=== PATIENT | male | born 1975 | race Caucasian/White ===

== ENCOUNTER 2017-07-25 03:15 | Inpatient (IN) ==
[2017-07-25 04:05] LABS: Basophils % 0.4 %; Eosinophils # 0.3 K/mcL (0.0-0.6); Eosinophils % 3.4 %; Hematocrit 43.7 % (37.5-50.1); Hemoglobin 14.3 g/dL (12.9-16.9); Immature Granulocytes % 0.3 % (0-4); Lymphocytes # 2.1 K/mcL (0.6-4.6); Lymphocytes % 25.9 %; Mean Corpuscular HGB Conc 32.7 g/dL (31.6-35.5); Mean Corpuscular Hemoglobin 24.8 pg (28.0-33.3); Mean Corpuscular Volume 75.7 fL (83.0-100.0); Mean Platelet Volume 9.9 fL (9.4-12.4); Monocytes # 0.6 K/mcL (0.0-1.3); Monocytes % 7.5 %; Platelet Count 316 K/mcL (140-400); Red Blood Count 5.77 M/mcL (4.19-5.50); Segmented Neutrophils % 62.5 %
[2017-07-25 04:11] LABS: Bilirubin,Urine Negative (Negative); Blood,Urine Negative (Negative); Clarity,Urine Clear (Clear); Color,Urine Yellow (Yellow); Glucose,Urine (UA) Normal (Normal); Ketones,Urine Negative (Negative); Leukocyte Esterase,Urine Negative (Negative); Nitrite,Urine Negative (Negative); PH,Urine 7.5 pH Units (5.0-8.0); Protein,Urine 30 mg/dL (Neg-Trace); Specific Gravity,Urine 1.025 (1.010-1.025); Urobilinogen,Urine Normal (Normal)
[2017-07-25 04:13] LABS: Bacteria,Urine None Seen per hpf (None-Few); Hyaline Casts,Urine None Seen per lpf (None-Few); Squamous Epithelial Cell,Urine Moderate per lpf (None-Few); WBC,Urine 0-3 per hpf (0-3)
[2017-07-25 04:17] LABS: Amphetamine Screen,Urine Negative ng/mL (Cutoff=1000); Barbiturate Screen,Urine Negative ng/mL (Cutoff=200); Benzodiazepines Screen,Urine Positive ng/mL (Cutoff=200); Cannabinoid Screen,Urine Negative ng/mL (Cutoff = 50); Cocaine Screen,Urine Negative ng/mL (Cutoff= 300); Opiate Screen,Urine Positive ng/mL (Cutoff=300); Phencyclidine Screen,Urine Negative ng/mL (Cutoff=25)
[2017-07-25 04:24] LABS: Acetaminophen < 1.0 mcg/mL (10-30); Ethanol < 10 mg/dL (0-10); Salicylate < 5.0 mg/dL (15.0-30.0)
[2017-07-25 04:28] LABS: BUN/Creatinine Ratio 18 (6-26); Blood Urea Nitrogen 17 mg/dL (6-20); Calcium 9.6 mg/dL (8.6-10.3); Carbon Dioxide 32 mEq/L (23-29); Chloride 98 mEq/L (98-107); Glucose 107 mg/dL (70-105); Osmolality,Calculated 290 (280-300); Potassium 3.3 mEq/L (3.5-5.1); Sodium 139 mEq/L (136-145); eGFR For African Americans > 60 (> 60); eGFR For Non-African Americans > 60 (> 60)
--- NOTE | 2017-07-25 06:17 | Emergency Department Note ---
Disposition Clinical Impression: Suicidal ideation Disposition: Admitted As Inpatient Condition: Good Referrals: NONE,PCP [Primary Care Provider] - General Adult HPI - General Chief complaint: ED Psychiatric Symptoms Stated complaint: SI Time Seen by Provider: 07/25/17 06:11 Source: patient Mode of arrival: ambulatory Limitations: no limitations Nursing Notes Reviewed: Yes Vital Signs Reviewed: Yes - History of Present Illness HPI Narrative: 41-year-old male with a history of suicidal ideation, suicidal attempts presents to the emergency department for feeling suicidal after a nasty breakup with his girlfriend. He states that he need at this time if he tried he would actually succeed in a scared him so he came in here for evaluation. Patient has a known history of depression and anxiety as well as polysubstance abuse. Onset (ago): Just TABULAR TYPIST Pain Scale: 0 - Related Data Previous Rx's Medication Instructions Recorded Ibuprofen [Motrin] 600 mg PO Q8HR PRN #20 tab 01/24/16 Oxycodone HCl/Acetaminophen 1 each PO Q4-6H PRN #15 tablet 01/24/16 [Percocet 5-325 mg Tablet] HYDROcodone/Acet 5/325 mg [[place] 1 tab PO Q6H PRN #15 tab 06/28/16 5-325 mg] Naproxen [Naprosyn] 500 mg PO BID #20 tablet 06/28/16 Cyclobenzaprine [Flexeril] 10 mg PO TID PRN #15 tablet 12/07/16 Naproxen [Naprosyn] 500 mg PO BID PRN #20 tablet 12/07/16 Allergies Allergy/AdvReac Type Severity Reaction Status Date / Time No Known Allergies Allergy Verified 07/25/17 03:17 Review of Systems: Denies all physical complaints, complains of suicidal ideation, suicidal plan, depression and anxiety. All systems ED: reviewed and negative except as stated. Review of Systems: As Per HPI Past Medical History - Past Medical History Attestation: Yes The following information was validated with the patient. Source: patient Medical history: Reports: asthma, hypertension Psychiatric history: Reports: anxiety, depression - Social History Smoking Status: Current every day smoker Smokeless Tobacco Status: No Alcohol use: Reports: none, occasionally, recent Drug use: Reports: none Physical Exam Physical exam negative. Patient does appear depressed. He has open and talking about being depressed and suicidal thoughts. - General Limitations: no limitations General appearance: alert Course Course Narrative: Patient here for medical clearance for his suicidal ideation. He does appear depressed. Physical exam negative. Labs negative with the exception of polysubstance abuse. Ia called is therefore 42. They are willing to accept the patient. We will transfer her care to [facility] at this time. Vital Signs Temperature 98.6 F 07/25/17 03:17 Pulse Rate 113 07/25/17 03:17 Respiratory Rate 16 07/25/17 03:17 Blood Pressure 133/92 07/25/17 03:17 O2 Sat by Pulse Oximetry 97 07/25/17 03:17 Temperature 98.6 F 07/25/17 03:17 Pulse Rate 82 07/25/17 05:09 Respiratory Rate 12 07/25/17 05:09 Blood Pressure 107/67 07/25/17 05:09 O2 Sat by Pulse Oximetry 94 07/25/17 05:09 Oxygen Delivery Oxygen Delivery Room Air Medical Decision Making - Lab Data Result diagrams: 07/25/17 03:40 07/25/17 03:40 Lab Results 07/25/17 07/25/17 07/25/17 Range/Units 03:40 03:40 03:50 WBC 8.0 (4.3-11.1) K/mcL RBC 5.77 H (4.19-5.50) M/mcL Hgb 14.3 (12.9-16.9) g/dL Hct 43.7 (37.5-50.1) % MCV 75.7 L (83.0-100.0) fL MCH 24.8 L (28.0-33.3) pg MCHC 32.7 (31.6-35.5) g/dL RDW 14.0 (11.5-14.5) % Plt Count 316 (140-400) K/mcL MPV 9.9 (9.4-12.4) fL Immature Gran % 0.3 (0-4) % Seg Neutrophils % 62.5 % Lymphocytes % 25.9 % Monocytes % 7.5 % Eosinophils % 3.4 % Basophils % 0.4 % Neutrophils # 5.0 (1.6-8.9) K/mcL Lymphocytes # 2.1 (0.6-4.6) K/mcL Monocytes # 0.6 (0.0-1.3) K/mcL Eosinophils # 0.3 (0.0-0.6) K/mcL Basophils # 0.0 (0.0-0.2) K/mcL Sodium 139 (136-145) mEq/L Potassium 3.3 L (3.5-5.1) mEq/L Chloride 98 (98-107) mEq/L Carbon Dioxide 32 H (23-29) mEq/L BUN 17 (6-20) mg/dL Creatinine 0.93 (0.70-1.30) mg/dL Est GFR ( Amer) > 60 (> 60) Est GFR (Non-Af Amer) > 60 (> 60) BUN/Creatinine Ratio 18 (6-26) Glucose 107 H (70-105) mg/dL Calculated Osmolality 290 (280-300) Calcium 9.6 (8.6-10.3) mg/dL Urine Color Yellow (Yellow) Urine Clarity Clear (Clear) Urine pH 7.5 (5.0-8.0) pH Units Ur Specific [place] 1.025 (1.010-1.025) Urine Protein 30 H (Neg-Trace) mg/dL Urine Glucose (UA) Normal (Normal) mg/dL Urine Ketones Negative (Negative) mg/dL Urine Blood Negative (Negative) Urine Nitrite Negative (Negative) Urine Bilirubin Negative (Negative) Urine Urobilinogen Normal (Normal) mg/dL Ur Leukocyte Esterase Negative (Negative) Urine Microscopic RBC 3-5 H (0-3) per hpf Urine Microscopic WBC 0-3 (0-3) per hpf Ur Squamous Epith Cells Moderate H (None-Few) per lpf Urine Bacteria None Seen (None-Few) per hpf Hyaline Casts None Seen (None-Few) per lpf Salicylates < 5.0 L (15.0-30.0) mg/dL Urine Opiates Screen (Yexqay=685) ng/mL Acetaminophen < 1.0 L (10-30) mcg/mL Ur Barbiturates Screen (Oklcbr=661) ng/mL Ur Phencyclidine Scrn (Cutoff=25) ng/mL Ur Amphetamines Screen (Bmwrup=1694) ng/mL U Benzodiazepines Scrn (Lfyoad=442) ng/mL Urine Cocaine Screen (Cutoff= 300) ng/mL U Marijuana (THC) Screen (Cutoff = 50) ng/mL Ethyl Alcohol < 10 (0-10) mg/dL 07/25/17 Range/Units 03:50 WBC (4.3-11.1) K/mcL RBC (4.19-5.50) M/mcL Hgb (12.9-16.9) g/dL Hct (37.5-50.1) % MCV (83.0-100.0) fL MCH (28.0-33.3) pg MCHC (31.6-35.5) g/dL RDW (11.5-14.5) % Plt Count (140-400) K/mcL MPV (9.4-12.4) fL Immature Gran % (0-4) % Seg Neutrophils % % Lymphocytes % % Monocytes % % Eosinophils % % Basophils % % Neutrophils # (1.6-8.9) K/mcL Lymphocytes # (0.6-4.6) K/mcL Monocytes # (0.0-1.3) K/mcL Eosinophils # (0.0-0.6) K/mcL Basophils # (0.0-0.2) K/mcL Sodium (136-145) mEq/L Potassium (3.5-5.1) mEq/L Chloride (98-107) mEq/L Carbon Dioxide (23-29) mEq/L BUN (6-20) mg/dL Creatinine (0.70-1.30) mg/dL Est GFR ( Amer) (> 60) Est GFR (Non-Af Amer) (> 60) BUN/Creatinine Ratio (6-26) Glucose (70-105) mg/dL Calculated Osmolality (280-300) Calcium (8.6-10.3) mg/dL Urine Color (Yellow) Urine Clarity (Clear) Urine pH (5.0-8.0) pH Units Ur Specific [place] (1.010-1.025) Urine Protein (Neg-Trace) mg/dL Urine Glucose (UA) (Normal) mg/dL Urine Ketones (Negative) mg/dL Urine Blood (Negative) Urine Nitrite (Negative) Urine Bilirubin (Negative) Urine Urobilinogen (Normal) mg/dL Ur Leukocyte Esterase (Negative) Urine Microscopic RBC (0-3) per hpf Urine Microscopic WBC (0-3) per hpf Ur Squamous Epith Cells (None-Few) per lpf Urine Bacteria (None-Few) per hpf Hyaline Casts (None-Few) per lpf Salicylates (15.0-30.0) mg/dL Urine Opiates Screen Positive H (Extomd=872) ng/mL Acetaminophen (10-30) mcg/mL Ur Barbiturates Screen Negative (Lbpjkl=376) ng/mL Ur Phencyclidine Scrn Negative (Cutoff=25) ng/mL Ur Amphetamines Screen Negative (Ahcbrr=0899) ng/mL U Benzodiazepines Scrn Positive H (Fbjqbj=521) ng/mL Urine Cocaine Screen Negative (Cutoff= 300) ng/mL U Marijuana (THC) Screen Negative (Cutoff = 50) ng/mL Ethyl Alcohol (0-10) mg/dL
[2017-07-25] MEDS ORDERED: *HR* LORazepam 1 MG TABLET PO PRN (06:39)
[2017-07-25] MEDS ORDERED: *HR* LORazepam 2 MG/ML VIAL IM PRN (06:39)
[2017-07-25] MEDS ORDERED: MOM Conc 10 ML UD.LIQ PO PRN (06:39)
[2017-07-25] MEDS ORDERED: Haloperidol Lactate 5 MG/ML VIAL IM PRN (06:39)
[2017-07-25] MEDS ORDERED: Mag Hydrox/Al Hydrox/Simeth 30 ML UDC PO PRN (06:39)
--- NOTE | 2017-07-25 08:20 | Emergency Department Note ---
Attestation Statement - Attestation Attestation: I, Wade Hein MD, personally evaluated this patient and discussed their management with the midlevel provicer, PAC/C UNIX DEVELOPER. I reviewed the midlevel provider 's note and agree with the documented findings, medical decision making, and plan of care. 41-year-old male presents to the emergency department with a complaint of suicidal ideation. Patient has a history of depression in the past and some suicidal thoughts. He states he has tried taking overdoses in the past. He states that this time he wanted to make sure that if he tried to kill himself that it was effective and he would do more than take a bunch of pills. He mentioned that he might shoot himself or cut his wrist. On examination patient is a well-developed well-nourished well-appearing male in no acute distress. He is alert and oriented 3. There is no cyanosis or diaphoresis. Breath sounds are clear and equal bilaterally. Heart regular rate and rhythm. Abdomen soft and nontender with normal bowel sounds. No gross focal neurological deficits. Labs reviewed and patient medically cleared for psychiatric evaluation. [address] psychiatry service was consulted and evaluated patient in the emergency department and the patient is being admitted to the [address] psychiatric unit.
--- NOTE | 2017-07-25 12:12 | Psychiatry History & Physical ---
Date of Encounter: 07/25/17 Time of Encounter: 12:07 History of Present Illness Patient Stated Chief Complaint: Suicidal ideation Medicare Admission Attestation: For traditional Medicare patients the provided hospital inpatient services are reasonable and necessary and in the case of services not specified as inpatient -only under 42 CFR 419.22 (n), that they are appropriately provided as inpatient services in accordance 42 CFR 412.3. For Critical [facility] the patient may reasonably be expected to be discharged or transferred to a hospital within 96 hours after admission to the Critical Access Hospital. Admitted From: Emergency Dept History of Present Illness: Mr. العراقي is a 41 year old male admitted from the emergency department for evaluation of suicidal ideation. Patient stated that he had marital conflicts with his who left the house and went to her parents and would not answer his phone calls or texts, he felt hopeless and helpless and he had thoughts about shooting himself to kill himself then on advice of a friend he came to the hospital for evaluation. Patient had no previous psych history or treatment and he reported that he was given Depakote couple years ago by his primary care physician to treat his anxiety otherwise no mental health history of treatment. Patient denied any previous suicide attempts or psychiatric hospitalization. 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 He is and they have together 3 children. Patient has a history of using opiates in the past but denied any use of alcohol or any drugs. Denies any history of rehabilitation. He is frustrated by the situation does not elaborate on the conflict with the and feeling hopeless. Past Med Surg Social Fam HX - Past Medical History Medical history: hypertension - Past Psychiatric History Psychiatric history: Reports: no psych history - Social History Smoking Status: Current every day smoker Smokeless Tobacco Status: No Alcohol use: none, occasionally, recent Drug use: none - Family History Mother History Unknown: Yes Adopted: [place]: Amelia العراقي Age: 63 Family Member Ethnicity: Non- Living Status: Still Living Hx Family Cardiac Disorders: Yes (hypertenion) Hx Family Respiratory Disorders: Yes (copd) Hx Family Cancer: No Hx Family GI Disorders: No Hx Family Genitourinary Disorders: No Hx Family Endocrine Disorder: No Hx Family Musculoskeletal Disorders: No Hx Family Neuromuscular Disorders: No Hx Family Neurologic Disorders: No Hx Family HEENT Disorders: No Hx Family Autoimmune Disorders: No Hx Family Reproductive Disorders: No Hx Family Psychosocial Disorders: Yes (depression) Hx Family Medical Disorders: No Medications & Allergies Ibuprofen [Motrin] 600 mg PO Q8HR PRN #20 tab 01/24/16 [Rx] Oxycodone HCl/Acetaminophen [Percocet 5-325 mg Tablet] 1 each PO Q4-6H PRN #15 tablet 01/24/16 [Rx] HYDROcodone/Acet 5/325 mg [[place] 5-325 mg] 1 tab PO Q6H PRN #15 tab 06/28/16 [Rx ] Naproxen [Naprosyn] 500 mg PO BID #20 tablet 06/28/16 [Rx] Cyclobenzaprine [Flexeril] 10 mg PO TID PRN #15 tablet 12/07/16 [Rx] Naproxen [Naprosyn] 500 mg PO BID PRN #20 tablet 12/07/16 [Rx] 3 Allergy/AdvReac Type Severity Reaction Status Date / Time No Known Allergies Allergy Verified 07/25/17 03:17 Review of Systems Psychiatric: Reports: abnormal sleep pattern, suicidal ideation, hopelessness Exam - HEENT Head exam IM: Present: atraumatic Eye exam IM: Present: EOMI, normal appearance, PERRL ENT exam IM: Present: normal exam - Neurological Neurological exam: Present: CN II-XII intact - Respiratory Respiratory exam IM: Present: CTAB - GI/Abdominal GI/Abdominal exam IM: Present: normal bowel sounds, soft. Absent: tenderness - Extremities Extremities exam IM: Present: full ROM - Skin Skin exam IM: Present: dry, warm - Constitutional Vitals: Temp Pulse Resp BP Pulse Ox 97.6 F 83 12 118/86 94 07/25/17 06:44 07/25/17 06:44 07/25/17 06:44 07/25/17 06:44 07/25/17 05:09 General appearance: age & developmentally appropriate, well-groomed, well- nourished - Musculoskeletal Gait: normal Station: relaxed Strength & Tone: normal for patient - Psychiatric Patient Orientation: Yes Person, Yes Time, Yes Place Level of alertness: Alert Behavior: calm, cooperative, anxious, guarded Psychomotor activity: Normal Eye Contact: Maintains Eye Contact Mood Description: Angry, Depressed, Irritable Affect description: congruent with mood, constricted Speech Volume: Normal Speech pattern: normal rate, normal rhythm, normal tone, fluent, spontaneous Language & Vocabulary: consistent with education Thought Process: Linear, Goal Oriented Thought Content: Yes Suicidal ideation, No Homicidal ideation, No Overt delusions Perceptual Disturbances: No Auditory hallucinations, No Visual hallucinations Attention Span Ability: Capable of Focused Attention Memory Description: Grossly Intact Patient Reliability: Reliable Historian Fund of knowledge: Yes abstraction ability, Yes average, Yes aware of current events Intelligence Estimate: Average Judgment: Limited Insight: Partial Results - Labs Labs: Laboratory Last Values WBC 8.0 K/mcL (4.3-11.1) 07/25/17 03:40 RBC 5.77 M/mcL (4.19-5.50) H 07/25/17 03:40 Hgb 14.3 g/dL (12.9-16.9) 07/25/17 03:40 Hct 43.7 % (37.5-50.1) 07/25/17 03:40 MCV 75.7 fL (83.0-100.0) L 07/25/17 03:40 MCH 24.8 pg (28.0-33.3) L 07/25/17 03:40 MCHC 32.7 g/dL (31.6-35.5) 07/25/17 03:40 RDW 14.0 % (11.5-14.5) 07/25/17 03:40 Plt Count 316 K/mcL (140-400) 07/25/17 03:40 MPV 9.9 fL (9.4-12.4) 07/25/17 03:40 Immature Gran % 0.3 % (0-4) 07/25/17 03:40 Seg Neutrophils % 62.5 % 07/25/17 03:40 Lymphocytes % 25.9 % 07/25/17 03:40 Monocytes % 7.5 % 07/25/17 03:40 Eosinophils % 3.4 % 07/25/17 03:40 Basophils % 0.4 % 07/25/17 03:40 Neutrophils # 5.0 K/mcL (1.6-8.9) 07/25/17 03:40 Lymphocytes # 2.1 K/mcL (0.6-4.6) 07/25/17 03:40 Monocytes # 0.6 K/mcL (0.0-1.3) 07/25/17 03:40 Eosinophils # 0.3 K/mcL (0.0-0.6) 07/25/17 03:40 Basophils # 0.0 K/mcL (0.0-0.2) 07/25/17 03:40 Sodium 139 mEq/L (136-145) 07/25/17 03:40 Potassium 3.3 mEq/L (3.5-5.1) L 07/25/17 03:40 Chloride 98 mEq/L (98-107) 07/25/17 03:40 Carbon Dioxide 32 mEq/L (23-29) H 07/25/17 03:40 BUN 17 mg/dL (6-20) 07/25/17 03:40 Creatinine 0.93 mg/dL (0.70-1.30) 07/25/17 03:40 Est GFR ( Amer) > 60 (> 60) 07/25/17 03:40 Est GFR (Non-Af Amer) > 60 (> 60) 07/25/17 03:40 BUN/Creatinine Ratio 18 (6-26) 07/25/17 03:40 Glucose 107 mg/dL (70-105) H 07/25/17 03:40 Calculated Osmolality 290 (280-300) 07/25/17 03:40 Calcium 9.6 mg/dL (8.6-10.3) 07/25/17 03:40 Urine Color Yellow (Yellow) 07/25/17 03:50 Urine Clarity Clear (Clear) 07/25/17 03:50 Urine pH 7.5 pH Units (5.0-8.0) 07/25/17 03:50 Ur Specific [place] 1.025 (1.010-1.025) 07/25/17 03:50 Urine Protein 30 mg/dL (Neg-Trace) H 07/25/17 03:50 Urine Glucose (UA) Normal mg/dL (Normal) 07/25/17 03:50 Urine Ketones Negative mg/dL (Negative) 07/25/17 03:50 Urine Blood Negative (Negative) 07/25/17 03:50 Urine Nitrite Negative (Negative) 07/25/17 03:50 Urine Bilirubin Negative (Negative) 07/25/17 03:50 Urine Urobilinogen Normal mg/dL (Normal) 07/25/17 03:50 Ur Leukocyte Esterase Negative (Negative) 07/25/17 03:50 Urine Microscopic RBC 3-5 per hpf (0-3) H 07/25/17 03:50 Urine Microscopic WBC 0-3 per hpf (0-3) 07/25/17 03:50 Ur Squamous Epith Cells Moderate per lpf (None-Few) H 07/25/17 03:50 Urine Bacteria None Seen per hpf (None-Few) 07/25/17 03:50 Hyaline Casts None Seen per lpf (None-Few) 07/25/17 03:50 Salicylates < 5.0 mg/dL (15.0-30.0) L 07/25/17 03:40 Urine Opiates Screen Positive ng/mL (Zcszfp=255) H 07/25/17 03:50 Acetaminophen < 1.0 mcg/mL (10-30) L 07/25/17 03:40 Ur Barbiturates Screen Negative ng/mL (Bamjmd=273) 07/25/17 03:50 Ur Phencyclidine Scrn Negative ng/mL (Cutoff=25) 07/25/17 03:50 Ur Amphetamines Screen Negative ng/mL (Zipxyx=4390) 07/25/17 03:50 U Benzodiazepines Scrn Positive ng/mL (Frvuww=710) H 07/25/17 03:50 Urine Cocaine Screen Negative ng/mL (Cutoff= 300) 07/25/17 03:50 U Marijuana (THC) Screen Negative ng/mL (Cutoff = 50) 07/25/17 03:50 Ethyl Alcohol < 10 mg/dL (0-10) 07/25/17 03:40 Assessment and Plan (1) Suicidal ideation Current visit: Yes Status: Acute Plan: Admit inpatient for safety and stabilization, Close observation, Suicide Precautions per unit protocol, Encourage participation in unit milieu, Group Therapy, Monitor sleep, Monitor appetite Additional Plan: We will start patient on Depakote 250 mg twice daily, benefits and side effects were discussed and he is agreeable to start. Risks, benefits, side effects, alternatives discussed w/pt: Yes Patient agreeable to treatment: Yes (2) Unspecified mood [affective] disorder Current visit: Yes Status: Acute Plan: Admit inpatient for safety and stabilization, Close observation, Suicide Precautions per unit protocol, Encourage participation in unit milieu, Group Therapy, Monitor sleep, Monitor appetite Risks, benefits, side effects, alternatives discussed w/pt: Yes Patient agreeable to treatment: Yes Estimated Length of Stay (Days): 3
[2017-07-25] MEDS: Nicotine 21 MG PATCH.TD24 TD SCH (12:14)
[2017-07-25] MEDS: hydrOXYzine pamoate 25 MG CAPSULE PO PRN (18:17)
[2017-07-25] MEDS: Divalproex (12 HR) 250 MG TABLET PO SCH (20:36)
[2017-07-25] MEDS: traZODone 50 MG TABLET PO PRN (20:37)
[2017-07-25] MEDS: Ibuprofen 400 MG TABLET PO PRN (20:37)
[2017-07-26] MEDS: Ibuprofen 400 MG TABLET PO PRN ×2 (08:58→19:27)
[2017-07-26] MEDS: Divalproex (12 HR) 250 MG TABLET PO SCH ×2 (08:58→20:52)
[2017-07-26] MEDS: Nicotine 21 MG PATCH.TD24 TD SCH (08:58)
[2017-07-26] MEDS: hydrOXYzine pamoate 25 MG CAPSULE PO PRN ×2 (10:17→19:07)
[2017-07-26] MEDS ORDERED: Ondansetron ODT 4 MG TAB.RAPDIS SL PRN (12:40)
[2017-07-26] MEDS ORDERED: hydrOXYzine pamoate 25 MG CAPSULE PO ONE (12:51)
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
[2017-07-26] MEDS: cloNIDine HCl 0.1 MG TABLET PO SCH ×2 (15:00→20:52)
[2017-07-26] MEDS: Baclofen 10 MG TABLET PO SCH ×2 (15:00→20:52)
[2017-07-26] MEDS: traZODone 50 MG TABLET PO PRN (20:52)
[2017-07-27] MEDS: cloNIDine HCl 0.1 MG TABLET PO SCH ×2 (08:18→21:00)
[2017-07-27] MEDS: Baclofen 10 MG TABLET PO SCH ×3 (08:18→21:01)
[2017-07-27] MEDS: Divalproex (12 HR) 250 MG TABLET PO SCH ×2 (08:18→21:01)
[2017-07-27] MEDS: Nicotine 21 MG PATCH.TD24 TD SCH (08:18)
[2017-07-27] MEDS: Ibuprofen 400 MG TABLET PO PRN ×2 (10:19→21:03)
--- NOTE | 2017-07-27 12:26 | Psychiatry Progress Note ---
Date of Encounter: 07/27/17 Time of Encounter: 12:30 Subjective Interval history: The patient has reported improved withdrawal symptoms. He has been free of suicidal ideation at least on the unit. His opiate use has was last Wednesday and he reports no cravings. On the current regimen of medicines. His depression is improved but nonetheless he is distressed about some events. The patient feels that his is not coming back to him. The patient aware of [facility] counseling. He has talked to a local police commanding officer in order to get guidance. The patient instructed his parents. Patient's presented a new plan he wants to move to [facility] outside [place] he has an opportunity to work in a job in [employer] for a company. He is previously talked to them and interviewed with them and now they are impressed with his resume he has the opportunity to interview for a position on Wednesday he would like to leave Wednesday or possibly so that he could stay overnight go to the interview. He was told that he should remain on the baclofen and that clonidine may be helping him but may need to be reduced. The patient feels that if he gets on the Depakote alone that will help his depression. He is looking for a new start in life. He was warned of the possibility of a geographical cure. That is a flight into health based on the idea that he will leave some disagreeable things behind Review of Systems Gastrointestinal: Reports: diarrhea Musculoskeletal: Reports: myalgia Psychiatric: Reports: abnormal sleep pattern, suicidal ideation, confusion, hopelessness Results - Vital Signs Vital Signs: Temp Pulse Resp BP Pulse Ox 97.9 F 87 16 111/78 94 07/27/17 08:31 07/27/17 08:31 07/27/17 08:31 07/27/17 08:31 07/25/17 05:09 Assessment and Plan (1) Major depressive disorder, single episode, severe without psychotic features Current visit: Yes Status: Acute Plan: Continue hospitalization, Close observation, Suicide Precautions per unit protocol Risks, benefits, side effects, alternatives discussed w/pt: Yes Patient agreeable to treatment: Yes (2) Uncomplicated alcohol dependence Current visit: Yes Status: Acute Plan: Continue hospitalization, Close observation Risks, benefits, side effects, alternatives discussed w/pt: Yes Patient agreeable to treatment: Yes (3) Chronic narcotic dependence Current visit: Yes Status: Acute Plan: Continue hospitalization, Close observation, Monitor sleep, Monitor appetite Risks, benefits, side effects, alternatives discussed w/pt: Yes Patient agreeable to treatment: Yes (4) Sedative, hypnotic or anxiolytic abuse, uncomplicated Current visit: Yes Status: Acute Plan: Continue hospitalization, Close observation Risks, benefits, side effects, alternatives discussed w/pt: Yes Patient agreeable to treatment: Yes (5) Opioid dependence with opioid-induced mood disorder Current visit: Yes Status: Acute Plan: Continue hospitalization, Group Therapy, Monitor sleep Risks, benefits, side effects, alternatives discussed w/pt: Yes Patient agreeable to treatment : Yes (6) Opioid dependence with uncomplicated intoxication Current visit: Yes Status: Acute Plan: Continue hospitalization, Close observation Risks, benefits, side effects, alternatives discussed w/pt: Yes Patient agreeable to treatment: Yes (7) Suicidal ideation Current visit: Yes Status: Acute Plan: Continue hospitalization, Close observation, Secure weapons Risks, benefits, side effects, alternatives discussed w/pt: Yes Patient agreeable to treatment: Yes Consult Discharge Plan - Plan Referrals: [facility] [Outside] - 08/10/17 10:45 am (The above appointment is with Maximo Butcher for primary healthcare and medication management services.) [facility] [Outside] - 08/03/17 9:00 am (The above appointment is with Corrina. This appointment is to establish you as a client, and will last approximately 3 hours. After that you will be scheduled for return individual counseling appointments. ) Psychiatry Exam - Constitutional Vitals: Temp Pulse Resp BP Pulse Ox 97.9 F 87 16 111/78 94 07/27/17 08:31 07/27/17 08:31 07/27/17 08:31 07/27/17 08:31 07/25/17 05:09 General appearance: age & developmentally appropriate, well-groomed, well- nourished - Musculoskeletal Gait: normal Station: relaxed Strength & Tone: normal for patient - Psychiatric Patient Orientation: Yes Person, Yes Time, Yes Place, Yes Circumstance Level of alertness: Alert Behavior: calm, cooperative, impulsive Psychomotor activity: Normal Eye Contact: Maintains Eye Contact Mood Description: Depressed Affect description: congruent with mood, full range Speech Volume: Normal Speech pattern: normal rate, normal rhythm, normal tone, fluent, spontaneous Language & Vocabulary: consistent with education Thought Process: Linear, Goal Oriented Thought Content: Yes Suicidal ideation, No Homicidal ideation, No Overt delusions Perceptual Disturbances: No Auditory hallucinations, No Visual hallucinations Attention Span Ability: Capable of Focused Attention Memory Description: Grossly Intact Patient Reliability: Questionable Historian Fund of knowledge: Yes above average, Yes aware of current events Intelligence Estimate: Average Judgment: Limited Insight: Partial
[2017-07-27] MEDS: hydrOXYzine pamoate 25 MG CAPSULE PO PRN ×2 (12:52→21:01)
[2017-07-27] MEDS: traZODone 50 MG TABLET PO PRN (21:01)
[2017-07-28] MEDS: hydrOXYzine pamoate 25 MG CAPSULE PO PRN (04:24)
[2017-07-28] MEDS: cloNIDine HCl 0.1 MG TABLET PO SCH (08:23)
[2017-07-28] MEDS: Divalproex (12 HR) 250 MG TABLET PO SCH (08:23)
[2017-07-28] MEDS: Baclofen 10 MG TABLET PO SCH (08:23)
[2017-07-28] MEDS: Nicotine 21 MG PATCH.TD24 TD SCH (08:23)
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
[2017-07-28 09:43] VITALS: BP 130/67
== END 2017-07-28 10:10 | disposition home or self-care (01) | DRG 751 ==
LOC: EMEROO 03:15 → 1ANU 03:15 → SUATTDRO 06:39 → 1ANU 06:39
PROVIDERS: ADMIT Psychiatry & Neurology Psychiatry; ATTEND Psychiatry & Neurology Forensic Psychiatry

== ENCOUNTER 2019-07-20 17:11 | Observation (INO) ==
[2019-07-20] MEDS ORDERED: Morphine Sulfate 2 MG/ML SYRINGE IVP ONE ×2 (20:47→22:06)
[2019-07-20] MEDS ORDERED: Piperacillin/Tazobactam 3.375 GM in 0.9 % Sodium Chloride Mini Bag 100 ML IVPB ONE (20:48)
[2019-07-20 20:57] LABS: Basophils % 0.3 %; Eosinophils # 0.1 K/mcL (0.0-0.6); Eosinophils % 1.4 %; Hematocrit 38.4 % (37.5-50.1); Hemoglobin 12.1 g/dL (12.9-16.9); Immature Granulocytes % 0.3 % (0-4); Lymphocytes # 1.5 K/mcL (0.6-4.6); Lymphocytes % 15.8 %; Mean Corpuscular HGB Conc 31.5 g/dL (31.6-35.5); Mean Corpuscular Hemoglobin 23.2 pg (28.0-33.3); Mean Corpuscular Volume 73.7 fL (83.0-100.0); Mean Platelet Volume 9.2 fL (9.4-12.4); Monocytes # 0.8 K/mcL (0.0-1.3); Monocytes % 7.9 %; Neutrophils # 7.2 K/mcL (1.6-8.9); Platelet Count 333 K/mcL (140-400); Red Blood Count 5.21 M/mcL (4.19-5.50); Red Cell Distribution Width 15.4 % (11.5-14.5); Segmented Neutrophils % 74.3 %; White Blood Count 9.7 K/mcL (4.3-11.1)
[2019-07-20 21:15] LABS: Alanine Aminotransferase 11 Units/L (7-52); Albumin 4.2 g/dL (3.5-5.7); Albumin/Globulin Ratio 1.4 (1.1-2.2); Alkaline Phosphatase 85 Units/L (34-104); Aspartate Amino Transferase 16 Units/L (13-39); BUN/Creatinine Ratio 24 (6-26); Bilirubin,Total 0.3 mg/dL (0.3-1.0); Blood Urea Nitrogen 17 mg/dL (6-20); C-Reactive Protein 84 mg/L (Less than 10); Calcium 9.3 mg/dL (8.6-10.3); Carbon Dioxide 29 mEq/L (23-29); Chloride 103 mEq/L (98-107); Globulin 2.9 g/dL (2.4-3.5); Glucose 88 mg/dL (70-105); Osmolality,Calculated 275 (280-300); Potassium 3.8 mEq/L (3.5-5.1); Sodium 132 mEq/L (136-145); Total Protein 7.1 g/dL (6.4-8.9); eGFR For African Americans > 60 (> 60); eGFR For Non-African Americans > 60 (> 60)
[2019-07-20] MEDS ORDERED: Naloxone 0.4 MG/ML INJ IVP PRN (22:52)
[2019-07-20] MEDS ORDERED: 0.9 % Sodium Chloride 1,000 ML IVC SCH (23:00)
[2019-07-21] MEDS: Ketorolac 30 MG/ML VIAL IVP PRN ×3 (02:40→17:43)
[2019-07-21 04:55] LABS: Hematocrit 36.5 % (37.5-50.1); Hemoglobin 11.7 g/dL (12.9-16.9); Mean Corpuscular HGB Conc 32.1 g/dL (31.6-35.5); Mean Corpuscular Hemoglobin 24.2 pg (28.0-33.3); Mean Corpuscular Volume 75.4 fL (83.0-100.0); Mean Platelet Volume 9.4 fL (9.4-12.4); Platelet Count 284 K/mcL (140-400); Red Blood Count 4.84 M/mcL (4.19-5.50); Red Cell Distribution Width 15.1 % (11.5-14.5); White Blood Count 9.7 K/mcL (4.3-11.1)
[2019-07-21 05:12] LABS: BUN/Creatinine Ratio 21 (6-26); Blood Urea Nitrogen 14 mg/dL (6-20); Calcium 8.4 mg/dL (8.6-10.3); Carbon Dioxide 27 mEq/L (23-29); Chloride 105 mEq/L (98-107); Glucose 91 mg/dL (70-105); Osmolality,Calculated 278 (280-300); Sodium 134 mEq/L (136-145); eGFR For African Americans > 60 (> 60); eGFR For Non-African Americans > 60 (> 60)
[2019-07-21] MEDS: *HR* Heparin 5,000 UNIT/ML VIAL SQ SCH ×3 (05:56→22:35)
[2019-07-21] MEDS ORDERED: Fluconazole 200 MG/100 ML 200 MG/100 ML BAG IVPB ONE (11:06)
[2019-07-21] MEDS: Piperacillin/Tazobactam 3.375 GM in 0.9 % Sodium Chloride Mini Bag 100 ML IVPB SCH ×2 (12:43→20:26)
[2019-07-21] MEDS: hydrOXYzine pamoate 25 MG CAPSULE PO PRN (19:25)
[2019-07-22] MEDS: Ketorolac 30 MG/ML VIAL IVP PRN (00:08)
[2019-07-22] MEDS: Piperacillin/Tazobactam 3.375 GM in 0.9 % Sodium Chloride Mini Bag 100 ML IVPB SCH ×2 (03:30→17:15)
[2019-07-22 05:14] LABS: Basophils % 0.2 %; Eosinophils # 0.2 K/mcL (0.0-0.6); Eosinophils % 1.7 %; Hematocrit 33.5 % (37.5-50.1); Hemoglobin 10.6 g/dL (12.9-16.9); Immature Granulocytes % 0.2 % (0-4); Lymphocytes # 1.7 K/mcL (0.6-4.6); Lymphocytes % 18.8 %; Mean Corpuscular HGB Conc 31.6 g/dL (31.6-35.5); Mean Corpuscular Hemoglobin 23.5 pg (28.0-33.3); Mean Corpuscular Volume 74.3 fL (83.0-100.0); Mean Platelet Volume 9.6 fL (9.4-12.4); Monocytes # 0.6 K/mcL (0.0-1.3); Monocytes % 7.1 %; Neutrophils # 6.5 K/mcL (1.6-8.9); Platelet Count 274 K/mcL (140-400); Red Blood Count 4.51 M/mcL (4.19-5.50); Red Cell Distribution Width 15.4 % (11.5-14.5); White Blood Count 9.1 K/mcL (4.3-11.1)
[2019-07-22 05:34] LABS: BUN/Creatinine Ratio 16 (6-26); Blood Urea Nitrogen 12 mg/dL (6-20); Calcium 8.6 mg/dL (8.6-10.3); Carbon Dioxide 26 mEq/L (23-29); Chloride 110 mEq/L (98-107); Glucose 78 mg/dL (70-105); Osmolality,Calculated 287 (280-300); Potassium 3.9 mEq/L (3.5-5.1); Sodium 139 mEq/L (136-145); eGFR For African Americans > 60 (> 60); eGFR For Non-African Americans > 60 (> 60)
[2019-07-22] MEDS: *HR* Heparin 5,000 UNIT/ML VIAL SQ SCH ×3 (06:10→21:55)
[2019-07-22] MEDS ORDERED: *HR* OxyCODONE Immed Rel 5 MG TABLET ONE (12:29)
[2019-07-22] MEDS ORDERED: Acetaminophen 325 MG TABLET PO PRN (14:47)
[2019-07-22] MEDS ORDERED: *HR* OxyCODONE Immed Rel 5 MG TABLET PO PRN (14:47)
[2019-07-22] MEDS ORDERED: Nystatin POWDER 30 GM BOTTLE TP ONE (15:04)
[2019-07-22] MEDS ORDERED: Piperacillin/Tazobactam 3.375 GM VIAL ONE (15:15)
[2019-07-22] MEDS ORDERED: hydrOXYzine pamoate 25 MG CAPSULE PO ONE (15:15)
[2019-07-22] MEDS ORDERED: *HR* Heparin 5,000 UNIT/ML VIAL ONE (15:15)
[2019-07-22] MEDS ORDERED: Ketorolac 15 MG/ML VIAL ONE (15:15)
[2019-07-22] MEDS ORDERED: 0.9 % Sodium Chloride (Mini-Bag +) 100 ML IVBAG ONE (15:15)
[2019-07-22] MEDS: *HR* OxyCODONE Immed Rel 5 MG TABLET PO PRN (21:59)
[2019-07-22] MEDS: Ketorolac 15 MG/ML VIAL IVP PRN (22:46)
[2019-07-23] MEDS: Piperacillin/Tazobactam 3.375 GM in 0.9 % Sodium Chloride Mini Bag 100 ML IVPB SCH ×2 (00:56→08:30)
[2019-07-23] MEDS ORDERED: *HR* LORazepam 2 MG/ML VIAL IVP ONE (02:56)
[2019-07-23 04:54] LABS: Basophils % 0.3 %; Eosinophils # 0.1 K/mcL (0.0-0.6); Eosinophils % 1.3 %; Hematocrit 36.2 % (37.5-50.1); Hemoglobin 11.4 g/dL (12.9-16.9); Immature Granulocytes % 0.1 % (0-4); Lymphocytes # 1.8 K/mcL (0.6-4.6); Lymphocytes % 20.6 %; Mean Corpuscular HGB Conc 31.5 g/dL (31.6-35.5); Mean Corpuscular Hemoglobin 23.4 pg (28.0-33.3); Mean Corpuscular Volume 74.2 fL (83.0-100.0); Mean Platelet Volume 9.9 fL (9.4-12.4); Monocytes # 0.5 K/mcL (0.0-1.3); Monocytes % 6.1 %; Neutrophils # 6.3 K/mcL (1.6-8.9); Platelet Count 353 K/mcL (140-400); Red Blood Count 4.88 M/mcL (4.19-5.50); Red Cell Distribution Width 15.2 % (11.5-14.5); Segmented Neutrophils % 71.6 %; White Blood Count 8.8 K/mcL (4.3-11.1)
[2019-07-23 05:15] LABS: BUN/Creatinine Ratio 12 (6-26); Blood Urea Nitrogen 9 mg/dL (6-20); Calcium 8.8 mg/dL (8.6-10.3); Carbon Dioxide 24 mEq/L (23-29); Chloride 111 mEq/L (98-107); Glucose 87 mg/dL (70-105); Osmolality,Calculated 290 (280-300); Potassium 3.6 mEq/L (3.5-5.1); Sodium 141 mEq/L (136-145); eGFR For African Americans > 60 (> 60); eGFR For Non-African Americans > 60 (> 60)
[2019-07-23] MEDS: *HR* Heparin 5,000 UNIT/ML VIAL SQ SCH ×2 (05:19→14:01)
[2019-07-23] MEDS: *HR* OxyCODONE Immed Rel 5 MG TABLET PO PRN (08:31)
[2019-07-23] MEDS: hydrOXYzine pamoate 25 MG CAPSULE PO PRN (08:31)
[2019-07-23] MEDS ORDERED: Nystatin POWDER 30 GM BOTTLE TP SCH (09:00)
[2019-07-23] MEDS: Ketorolac 15 MG/ML VIAL IVP PRN (14:01)
[2019-07-23 15:28] VITALS: BP 119/77
[2019-07-23] MEDS ORDERED: Aminoglycoside Consult 1 EACH MC ONE (16:32)
[2019-07-23] MEDS ORDERED: QUEtiapine Fumarate 25 MG TABLET PO ONE (22:00)
== END 2019-07-23 16:33 | disposition left against medical advice (07) ==
LOC: 3ANU 17:11 → EMEROOARM 17:11 → SUATTDRO 22:42 → 3ANU 23:59
PROVIDERS: ADMIT Student in an Organized Health Care Education/Training Program; ATTEND Student in an Organized Health Care Education/Training Program